=== PATIENT | female | born 2000 | race Caucasian/White ===

== ENCOUNTER 2018-03-02 07:50 | Emergency (ER) | payer OTHER ==
--- NOTE | 2018-03-02 07:56 | ER Document Report ---
HPI - HPI Pain Level: 3 Notes: Patient is a 17-year-old female with no significant past medical history who presents to the ED complaining of right dorsal foot pain status post injury while playing basketball yesterday. Patient states that she is still able to ambulate with a limp, but does have discomfort in doing so. The pain does not radiate. She has not noticed any other gross deformity. She denies any drug allergies. No IV drug use. Denies any headache, fever, URI, sore throat, chest pain, palpitations, syncope, cough, shortness of breath, wheeze, dyspnea, abdominal pain, nausea/vomiting/diarrhea, urinary retention, dysuria, hematuria , numbness/tingling, muscle paralysis/weakness, or rash. - ROS Systems Reviewed and Negative: Yes All other systems reviewed and negative Past Medical History - Social History Smoking Status: Never Smoker Family History: Reviewed & Not Pertinent Vertical Provider Document - CONSTITUTIONAL Agree With Documented VS: No - HR of 90 Notes: PHYSICAL EXAMINATION: GENERAL: Well-appearing, well-nourished and in no acute distress. LUNGS: Breath sounds clear to auscultation bilaterally and equal. No wheezes rales or rhonchi. HEART: Regular rate and rhythm without murmurs, rubs, gallops. Musculoskeletal: Rt foot/ankle: FROM to passive/active. Strength 5+/5. N/V intact distal. + tenderness to the dorsal medial foot. No bony tenderness of the ankle. Achilles intact. Extremities: No cyanosis, clubbing, or edema b/l. Peripheral pulses 2+. Capillary refill less than 3 seconds. NEUROLOGICAL: Normal speech, limping gait. Normal sensory, motor exams PSYCH: Normal mood, normal affect. SKIN: Warm, Dry, normal turgor, no rashes or lesions noted. - INFECTION CONTROL TRAVEL OUTSIDE OF THE [place] IN LAST 30 DAYS: No Course - Re-evaluation Re-evalutation: 03/02/18 08:52 Patient is an afebrile, well-hydrated, 17-year-old female who presents to the ED with Rt foot pain which I suspect to be a sprain versus strain. Vitals are acceptable without any significant tachycardia, tachypnea, or hypoxia. PE is otherwise unremarkable for any neurovascular compromise, obvious tendon/ ligament rupture, obvious fracture/dislocation, septic joint. X-ray was unremarkable for any acute pathology. Patient is nontoxic-appearing. Patient is able to ambulate and weight-bear although she is limping. No other labs or imaging warranted at this time based on H&P. Rx for naproxen. Conservative measures otherwise for symptoms. Recheck with your PCM in 3-5 days. Consider consult orthopedics. Return to the ED with any worsening/concerning symptoms otherwise as reviewed in discharge. Patient is in agreement. Discharge - Discharge Clinical Impression: Right foot pain Condition: Stable Disposition: HOME, SELF-CARE Additional Instructions: Rest, Ice, Compression, Elevation Tylenol/ibuprofen as needed Light stretches daily Strength exercises as able Moist heat and massage may help F/u with your PCP in 3-5 days for a recheck Consider consult(s) with Orthopedics/physical therapy for ongoing/worsening symptoms Return to the ED with any worsening symptoms and/or development of fever, headache, chest pain, palpitations, syncope, shortness of breath, trouble breathing, abdominal pain, n/v/d, muscle weakness/paralysis, numbness/tingling, swelling, redness, or other worsening symptoms that are concerning to you. Prescriptions: Naproxen 500 mg PO BID PRN #30 tablet PRN Reason: Forms: Elevated Blood Pressure Referrals: [facility] [Provider Group] - Follow up as needed
--- NOTE | 2018-03-02 08:34 | RADIOLOGY REPORT (SQ) ---
EXAM DESCRIPTION: FOOT RIGHT COMPLETE COMPLETED DATE/TIME: 03/02/2018 8:20 am REASON FOR STUDY: pain s/p injury COMPARISON: None. NUMBER OF VIEWS: Three views right foot. LIMITATIONS: None. FINDINGS: There is no acute or significant bone, joint or soft tissue abnormality. OTHER: No other significant finding. IMPRESSION: NORMAL STUDY. TECHNICAL DOCUMENTATION: JOB ID: [id number] Reading location - IP/workstation name: [email or web address]
[2018-03-02 09:00] VITALS: BP 122/80
== END 2018-03-02 09:10 | disposition home or self-care (01) ==
LOC: ER 07:50
DX: M79.671 Pain in right foot (principal)
CPT/HCPCS: 99283

== ENCOUNTER 2018-12-25 16:21 | Inpatient (IN) | payer OTHER ==
[2018-12-25 17:07] LABS: APPEARANCE,URINE CLEAR; BILIRUBIN,URINE NEGATIVE (NEGATIVE); COLOR,URINE STRAW; GLUCOSE, URINE NEGATIVE (NEGATIVE); KETONES,URINE NEGATIVE (NEGATIVE); LEUKOCYTE ESTERASE,URINE MODERATE (NEGATIVE); NITRITE,URINE NEGATIVE (NEGATIVE); PROTEIN,URINE NEGATIVE (NEGATIVE); URINE SPECIFIC GRAVITY 1.003; UROBILINOGEN,URINE NEGATIVE mg/dL (<2.0)
[2018-12-25] MEDS ORDERED: LIDOCAINE 1% INJ-PF (10 MG/ML) 30 ML SDV ONE (17:19)
[2018-12-25] MEDS ORDERED: OXYTOCIN/NORMAL SALINE 20 UNIT/1,000 ML RTUINJ ONE (17:19)
[2018-12-25] MEDS ORDERED: OXYTOCIN 10 UNIT/ML VIAL ONE (17:19)
[2018-12-25] MEDS ORDERED: DINOPROSTONE 10 MG VAGINAL INSERT.SR ONE (17:19)
[2018-12-25] MEDS ORDERED: MISOPROSTOL 0.2 MG TABLET ONE (17:19)
[2018-12-25 17:21] LABS: ABSOLUTE BASOPHILS # (AUTO) 0.1 10^3/uL (0.0-0.2); ABSOLUTE LYMPHOCYTES (AUTO) 1.5 10^3/uL (0.5-4.7); ABSOLUTE MONOCYTES (AUTO) 0.7 10^3/uL (0.1-1.4); ABSOLUTE NEUT (AUTO) 8.1 10^3/uL (1.7-8.2); BASOPHILS % (AUTO) 0.5 % (0-2); EOSINOPHILS % (AUTO) 0.4 % (0-6); HEMATOCRIT 33.5 % (36.0-47.0); HEMOGLOBIN 11.7 g/dL (12.0-15.5); LYMPHOCYTES % (AUTO) 14.1 % (13-45); MEAN CORPUSCULAR HEMOGLOBIN 30.7 pg (27.0-33.4); MEAN CORPUSCULAR VOLUME 88 fl (80-97); PLATELET COUNT 227 10^3/uL (150-450); RED BLOOD COUNT 3.82 10^6/uL (3.72-5.28); RED CELL DISTRIBUTION WIDTH 13.4 % (11.5-14.0); TOTAL CELLS COUNTED % (AUTO) 100 %; WHITE BLOOD COUNT 10.4 10^3/uL (4.0-10.5)
[2018-12-25 17:28] LABS: URINE AMPHETAMINES SCREEN NEGATIVE; URINE BARBITURATES SCREEN NEGATIVE; URINE BENZODIAZEPINES SCREEN NEGATIVE; URINE COCAINE SCREEN NEGATIVE; URINE MARIJUANA (THC) SCREEN NEGATIVE; URINE METHADONE SCREEN NEGATIVE; URINE PHENCYCLIDINE SCREEN NEGATIVE
[2018-12-25] MEDS ORDERED: OXYTOCIN/NORMAL SALINE 20 UNIT/1,000 ML RTUINJ IV PRN (18:11)
[2018-12-25] MEDS ORDERED: DINOPROSTONE 10 MG VAGINAL INSERT.SR PV PRN (18:11)
[2018-12-25] MEDS ORDERED: RINGERS SOLUTION,LACTATED 300 ML IV ONE (18:11)
[2018-12-25 19:33] LABS: ALANINE AMINOTRANSFERASE 13 U/L (9-52); ALBUMIN 3.8 g/dL (3.5-5.0); ALKALINE PHOSPHATASE 114 U/L (38-126); ANION GAP 9 (5-19); ASPARTATE AMINO TRANSFERASE 18 U/L (14-36); BILIRUBIN,DIRECT 0.3 mg/dL (0.0-0.4); BILIRUBIN,TOTAL 0.9 mg/dL (0.2-1.3); BLOOD UREA NITROGEN 11 mg/dL (7-20); CALCIUM 9.4 mg/dL (8.4-10.2); CARBON DIOXIDE 21 mmol/L (22-30); CHLORIDE 106 mmol/L (98-107); GLUCOSE 97 mg/dL (75-110); TOTAL PROTEIN 6.5 g/dL (6.3-8.2); URIC ACID 4.9 mg/dL (2.5-6.2)
[2018-12-25] MEDS: RINGERS SOLUTION,LACTATED 1,000 ML IV PRN (19:57)
[2018-12-26] MEDS: RINGERS SOLUTION,LACTATED 1,000 ML IV PRN (04:27)
[2018-12-26 10:10] LABS: ABSOLUTE LYMPHOCYTES (AUTO) 1.2 10^3/uL (0.5-4.7); ABSOLUTE MONOCYTES (AUTO) 0.9 10^3/uL (0.1-1.4); ABSOLUTE NEUT (AUTO) 10.6 10^3/uL (1.7-8.2); BASOPHILS % (AUTO) 0.2 % (0-2); EOSINOPHILS % (AUTO) 0.2 % (0-6); HEMATOCRIT 34.7 % (36.0-47.0); HEMOGLOBIN 11.9 g/dL (12.0-15.5); LYMPHOCYTES % (AUTO) 9.6 % (13-45); MEAN CORPUSCULAR HEMOGLOBIN 30.1 pg (27.0-33.4); MEAN CORPUSCULAR HGB CONC 34.4 g/dL (32.0-36.0); MEAN CORPUSCULAR VOLUME 88 fl (80-97); PLATELET COUNT 206 10^3/uL (150-450); RED BLOOD COUNT 3.96 10^6/uL (3.72-5.28); RED CELL DISTRIBUTION WIDTH 13.5 % (11.5-14.0); TOTAL CELLS COUNTED % (AUTO) 100 %; WHITE BLOOD COUNT 12.7 10^3/uL (4.0-10.5)
[2018-12-26 10:34] LABS: ALANINE AMINOTRANSFERASE 16 U/L (9-52); ALBUMIN 3.7 g/dL (3.5-5.0); ALKALINE PHOSPHATASE 107 U/L (38-126); ANION GAP 7 (5-19); ASPARTATE AMINO TRANSFERASE 17 U/L (14-36); BILIRUBIN,DIRECT 0.2 mg/dL (0.0-0.4); BILIRUBIN,TOTAL 1.1 mg/dL (0.2-1.3); BLOOD UREA NITROGEN 7 mg/dL (7-20); CALCIUM 9.2 mg/dL (8.4-10.2); TOTAL PROTEIN 6.3 g/dL (6.3-8.2)
[2018-12-26 10:40] LABS: CHLORIDE 109 mmol/L (98-107); GLUCOSE 67 mg/dL (75-110)
[2018-12-26 10:41] LABS: CARBON DIOXIDE 21 mmol/L (22-30)
--- NOTE | 2018-12-26 11:03 | Admission Physical ---
Datetime Report Generated by CPN: 12/26/2018 11:02 CURRENT ADMISSION Hx Assessment: The History has been Reviewed and is Current Indication for Induction: PreEclampsia Admit Impression : Term, Intrauterine ; No Active Labor; Intact Membranes; Induction of Labor Admit Plan: Admit to Unit; Initiate Labor Induction Protocol ALLERGIES Medication Allergies: No Medication Allergies: No Known Allergies (12/25/2018) Latex: No Latex Allergies OBSTETRICAL HISTORY EDC: 01/08/2019 00:00 : 2 Para: 0 Term: 0 : 0 SAB: 0 IAB: 0 Ectopic: 0 Livin Cesareans: 0 VBACs: 0 Multiple Births: 0 Gestational Diabetes: No Rh Sensitization: No Incompetent Cervix: No AZIZA: No Infertility: No ART Treatment: No Uterine Anomaly: No IUGR: No Hx Previous C/S: No Macrosomia: No Hx Loss/Stillborn: No PIH: No Hx : No Placenta Previa/Abruption: No Depression/PP Depression: No PTL/PROM: No Post Hemorrhage: No Current Procedures: Ultrasound Obstetrical History Comments: 2014 G2- Current SEE RECORDS Alcohol: No Marijuana : No Cocaine: No Other Illicit Drugs: No Cigarettes: Never Smoker. [id number] MEDICAL HISTORY Diabetes: No Blood Transfusion: No Pulmonary Disease (Asthma, TB): No Breast Disease: No Hypertension: No Can Patcher Surgery: No Heart Disease: No Hosp/Surgery: Yes Autoimmune Disorder: No Anesthetic Complications: No Kidney Disease: No Abnormal Pap Smear: No Neuro/Epilepsy: No Psychiatric Disorders: No Other Medical Diseases: No Hepatitis/Liver Disease: No Significant Family History: No Varicosities/Phlebitis: No Trauma/Violence : No Thyroid Dysfunction: No Medical History Comments: tonsils/adenoids INFECTIOUS HISTORY Gonorrhea: No Genital Herpes: No Chlamydia: No Tuberculosis: No Syphilis: No Hepatitis: No HIV/AIDS Exposure: No Rash or Viral Illness: No HPV: No PHYSICAL EXAM General: Normal HEENT: Deferred Neurologic: Normal Thyroid: Normal Heart: Normal Lungs: Normal Breast: Deferred Back: Normal Abdomen: Normal Genitourinary Exam: Normal Extremities: Normal DTRs: Normal Pelvic Type: Adequate Physical Exam Comments: G2 AB 1 24 hour ua 1062 FETUS A Monitoring: External US FHR Category: Category I Admit Comment: Admitted to LD for Cervidil and IOL for Pre-eclampsia, cervidil and Pitocin irreg uc's now, Cat 1 strip POC discussed with pt, GBS neg PLANS FOR LABOR AND DELIVERY Labor and Delivery: None Pain Management: Natural Feeding Preference: Breast Benefit of Breast Feed Discussed: Yes Circumcision: Yes INFORMED CONSENT Assignment: Jackie Helton, MD Signature: with User ID: [email or web address] : with User ID: [email or web address]
[2018-12-26] MEDS ORDERED: EPHEDRINE SULFATE INJ 50 MG/1 ML AMPULE ONE (11:47)
[2018-12-26] MEDS ORDERED: BUPIVACAINE HCL 0.25 % INJ/PF (2.5 MG/1 ML) 30 ML VIAL ONE (11:48)
[2018-12-26] MEDS ORDERED: FENTANYL/BUPIVACAINE/NS/PF 300 MCG/150 ML RTUINJ EPI ONE (11:48)
[2018-12-26] MEDS ORDERED: PHENYLEPHRINE HCL INJ/PF 10 MG/1 ML SDV ONE (11:53)
[2018-12-26] MEDS ORDERED: FENTANYL CITRATE INJ/PF 100 MCG/2 ML AMPUL ONE (11:53)
[2018-12-26] MEDS ORDERED: PROMETHAZINE HCL 25 MG TABLET PO PRN (15:11)
[2018-12-26] MEDS ORDERED: DIPH/PERTUSS(ACELL)/TETANUS VAC/PF 0.5 ML SYR (>=10YO) IM PRN (15:11)
[2018-12-26] MEDS ORDERED: OXYTOCIN/NORMAL SALINE 20 UNIT/1,000 ML RTUINJ IV PRN (15:11)
[2018-12-26] MEDS ORDERED: BENZOCAINE/MENTHOL AEROSOL SPRAY 56 ML TOP PRN (15:11)
[2018-12-26] MEDS ORDERED: MEASLES,MUMPS&RUBELLA VACC/PF 0.5 ML VIAL SUBCUT PRN (15:11)
[2018-12-26] MEDS ORDERED: NA PHOS,M-B/NA PHOS,DI-BA (ADULT) 133 ML ENEMA PR PRN (15:11)
[2018-12-26] MEDS ORDERED: PSEUDOEPHEDRINE HCL 30 MG TABLET PO PRN (15:11)
[2018-12-26] MEDS ORDERED: ACETAMINOPHEN 650 MG SUPP.RECT PR PRN (15:11)
[2018-12-26] MEDS ORDERED: PROMETHAZINE HCL INJ 25 MG/1 ML VIAL IV PRN (15:11)
[2018-12-26] MEDS ORDERED: DIBUCAINE 1% OINTMENT 56 GM TP PRN (15:11)
[2018-12-26] MEDS ORDERED: ACETAMINOPHEN WITH CODEINE #3 TABLET PO PRN ×2 (15:11)
[2018-12-26] MEDS ORDERED: MAGNESIUM HYDROXIDE SUSP 30 ML UDCUP PO PRN (15:11)
[2018-12-26] MEDS ORDERED: DIPHENHYDRAMINE HCL 25 MG CAPSULE PO PRN (15:11)
[2018-12-26] MEDS ORDERED: GLYCERIN/WITCH HAZEL LEAF 1 EACH MED..WIPE TP PRN (15:11)
[2018-12-26] MEDS ORDERED: PROMETHAZINE HCL 25 MG SUPP.RECT PR PRN (15:11)
[2018-12-26] MEDS ORDERED: ONDANSETRON HCL INJ/PF 4 MG/2 ML SDV ONE (15:24)
[2018-12-26] MEDS: DOCUSATE SODIUM 100 MG CAPSULE PO SCH (17:29)
[2018-12-26] MEDS: FERROUS SULFATE 325 MG TABLET PO SCH (17:29)
[2018-12-26] MEDS: FAMOTIDINE 20 MG TABLET PO SCH (22:06)
[2018-12-26] MEDS: IBUPROFEN 800 MG TABLET PO SCH (22:06)
[2018-12-27] MEDS: IBUPROFEN 800 MG TABLET PO SCH ×3 (05:29→21:35)
[2018-12-27 07:32] LABS: HEMATOCRIT 32.2 % (36.0-47.0); HEMOGLOBIN 11.2 g/dL (12.0-15.5); MEAN CORPUSCULAR HEMOGLOBIN 30.1 pg (27.0-33.4); MEAN CORPUSCULAR HGB CONC 34.7 g/dL (32.0-36.0); MEAN CORPUSCULAR VOLUME 87 fl (80-97); PLATELET COUNT 208 10^3/uL (150-450); RED BLOOD COUNT 3.71 10^6/uL (3.72-5.28); RED CELL DISTRIBUTION WIDTH 13.6 % (11.5-14.0); WHITE BLOOD COUNT 14.6 10^3/uL (4.0-10.5)
--- NOTE | 2018-12-27 09:53 | PDOC PROGRESS REPORT ---
Subjective-OB Progress Note for:: 12/27/18 Subjective: Doing well, no c/o, holding baby, voiding, Physical Exam (OB) Vital Signs: Temp Pulse Resp BP Pulse Ox 98.8 F 68 16 139/80 H 99 12/26/18 17:21 12/26/18 17:21 12/26/18 17:21 12/26/18 17:21 12/26/18 17:21 Intake & Output 12/26/18 12/27/18 12/28/18 06:59 06:59 06:59 Intake Total 1000 300 Output Total 1 Balance 1000 299 Weight 79.5 kg - PIH/Pre-Eclampsia DTR's: 2 + Clonus: Negative Headache: Absent Epigastric Pain: No Visual Changes: No - Lochia Lochia Amount: Scant < 10 ml Lochia Color: Rubra/Red - Abdomen Description: Tender, Soft Hernia Present: No Fundal Description: Firm, Midline Fundal Height: u/u - u/2 Objective-Diagnostic Laboratory: 12/27/18 07:00 12/26/18 09:40 12/26/18 12/26/18 12/27/18 09:40 09:40 07:00 WBC 12.7 H 14.6 H RBC 3.96 3.71 L Hgb 11.9 L 11.2 L Hct 34.7 L 32.2 L MCV 88 87 MCH 30.1 30.1 MCHC 34.4 34.7 RDW 13.5 13.6 Plt Count 206 208 Seg Neutrophils % 83.0 H Lymphocytes % 9.6 L Monocytes % 7.0 Eosinophils % 0.2 Basophils % 0.2 Absolute Neutrophils 10.6 H Absolute Lymphocytes 1.2 Absolute Monocytes 0.9 Absolute Eosinophils 0.0 Absolute Basophils 0.0 Sodium 137.1 Potassium 4.0 Chloride 109 H Carbon Dioxide 21 L Anion Gap 7 BUN 7 Creatinine 0.56 Est GFR ( Amer) > 60 Est GFR (Non-Af Amer) > 60 Glucose 67 L Calcium 9.2 Total Bilirubin 1.1 AST 17 ALT 16 Alkaline Phosphatase 107 Total Protein 6.3 Albumin 3.7 Assessment and Plan(PN) - Assessment and Plan (1) Vacuum extraction, delivered, current hospitalization Is this a current diagnosis for this admission?: Yes (2) Pre-eclampsia Qualifiers: Trimester: third trimester Qualified Code(s): O14.93 - Unspecified pre- eclampsia, third trimester Is this a current diagnosis for this admission?: Yes (3) Encounter for induction of labor Is this a current diagnosis for this admission?: Yes - Time Spent with Patient Time with patient: Less than 15 minutes Medications reviewed and adjusted accordingly: Yes - Disposition Anticipated Discharge: Home Within: within 24 hours
[2018-12-27] MEDS: FERROUS SULFATE 325 MG TABLET PO SCH ×2 (10:35→18:34)
[2018-12-27] MEDS: SENNOSIDES/DOCUSATE 8.6-50 MG 1 EACH TABLET PO SCH (10:35)
[2018-12-27] MEDS: DOCUSATE SODIUM 100 MG CAPSULE PO SCH ×2 (10:35→18:34)
[2018-12-27] MEDS: FAMOTIDINE 20 MG TABLET PO SCH ×2 (10:35→21:35)
[2018-12-27] MEDS: PRENATAL VITAMIN W DHA CAPSULE PO SCH (10:35)
[2018-12-28] MEDS: IBUPROFEN 800 MG TABLET PO SCH (06:12)
--- NOTE | 2018-12-28 09:01 | PDOC PROGRESS REPORT ---
Subjective-OB Progress Note for:: 12/28/18 Subjective: Doing well, no c/o, ready to go home, hsb at BS, scant bleeding, eating well Physical Exam (OB) Vital Signs: Temp Pulse Resp BP Pulse Ox 97.8 F 57 L 18 132/79 H 98 12/28/18 04:17 12/28/18 04:17 12/28/18 04:17 12/28/18 04:17 12/28/18 04:17 Intake & Output 12/27/18 12/28/18 12/29/18 06:59 06:59 06:59 Intake Total 300 300 Output Total 1 Balance 299 300 - PIH/Pre-Eclampsia DTR's: 1 + Clonus: Negative Headache: Absent Epigastric Pain: No Visual Changes: No - Lochia Lochia Amount: Scant < 10 ml Lochia Color: Rubra/Red - Abdomen Description: Tender, Soft, Round Hernia Present: No Fundal Description: Firm, Midline Fundal Height: u/u - u/2 Objective-Diagnostic Laboratory: 12/27/18 07:00 12/26/18 09:40 Assessment and Plan(PN) - Assessment and Plan (1) Vacuum extraction, delivered, current hospitalization Is this a current diagnosis for this admission?: Yes (2) Pre-eclampsia Qualifiers: Trimester: third trimester Qualified Code(s): O14.93 - Unspecified pre- eclampsia, third trimester Is this a current diagnosis for this admission?: Yes (3) Encounter for induction of labor Is this a current diagnosis for this admission?: Yes - Time Spent with Patient Time with patient: Less than 15 minutes Medications reviewed and adjusted accordingly: Yes - Disposition Anticipated Discharge: Home Within: within 24 hours
--- NOTE | 2018-12-28 09:04 | PDOC DISCHARGE SUMMARY ---
Final Diagnosis Discharge Date: 12/28/18 - Final Diagnosis (1) Vacuum extraction, delivered, current hospitalization Is this a current diagnosis for this admission?: Yes (2) Pre-eclampsia Is this a current diagnosis for this admission?: Yes (3) Encounter for induction of labor Is this a current diagnosis for this admission?: Yes Discharge Data - Discharge Medication Home Medications: 95/Iron Fum/Folic/Dha [ + Dha Combo Pack] 1 cap PO DAILY 12/22/18 Ascorbic Acid [Vitamin C] 1,000 mg PO DAILY 12/25/18 Iron,Carbonyl [Perfect Iron] 1 tab PO DAILY 12/25/18 Gestational Age: 38.1 Reason(s) for Admission: Induction of Labor Admission Note: Pre-eclampsia Procedures: NST, Ultrasound Intrapartum Procedure(s): Spontaneous Vaginal Delivery Complication(s): Laceration-Vaginal Laceration-Degree: 2nd - Diagnosis Test Laboratory: Temp Pulse Resp BP Pulse Ox 97.8 F 57 L 18 132/79 H 98 12/28/18 04:17 12/28/18 04:17 12/28/18 04:17 12/28/18 04:17 12/28/18 04:17 12/25/18 12/25/18 12/26/18 16:41 17:01 09:40 RBC 3.82 3.96 Hgb 11.7 L 11.9 L Hct 33.5 L 34.7 L Urine Opiates Screen NEGATIVE 12/27/18 07:00 RBC 3.71 L Hgb 11.2 L Hct 32.2 L Urine Opiates Screen - Discharge information/Instructions Discharge Activity: Activity As Tolerated, No Lifting Over 10 Pounds, No Lifting/Push/Pulling, Pelvic Rest Discharge Diet: As Tolerated, Regular Disposition: HOME, SELF-CARE Follow up with: [facility] in: 2, Weeks
[2018-12-28] MEDS: PRENATAL VITAMIN W DHA CAPSULE PO SCH (10:20)
[2018-12-28] MEDS: SENNOSIDES/DOCUSATE 8.6-50 MG 1 EACH TABLET PO SCH (10:21)
[2018-12-28] MEDS: FAMOTIDINE 20 MG TABLET PO SCH (10:21)
[2018-12-28] MEDS: DOCUSATE SODIUM 100 MG CAPSULE PO SCH (10:21)
[2018-12-28] MEDS: FERROUS SULFATE 325 MG TABLET PO SCH (10:21)
[2018-12-28 12:13] VITALS: BP 133/78
--- NOTE | 2018-12-30 12:02 | Delivery Summary ---
Del Sum A-C Datetime Report Generated by CPN: 12/30/2018 12:02 DELIVERY PERSONNEL DELIVERY PERSONNEL: [id number] Delivery Doctor:: Jackie Helton MD Labor and Delivery Nurse:: Kayla So RNchief sustainability officer Nurse:: Dyana Olvera RN Formulation Technician:: Dorothy Argueta RNC Nursery Nurse:: Brynn Deluna RN Flooring Mechanic/COMPUTING SERVICES DIRECTOR: Rekha Cali, ST Additional Personnel: : Coco Campos RN and Federica Barrera, AMEE MATERNAL INFORMATION Delivery Anesthesia: Epidural Medications During Delivery: cytotec 1000 mcg per rectum Medications After Delivery: Pitocin Bolus-Please Comment; Cytotec 1000mcg Per Rectum/Vagina Meds After Delivery Comment: pitocin 20 units in 1000 ml nss open for bolus Estimated Blood Loss (ml): 300 Delivery QBL: 300 Maternal Complications: None Provider Comments: VAVD of a viable male @ 1504 with an OA w/tight nuchal cord x 1 presentation; APGARS 8, 9. 2nd degree midline lac LABOR SUMMARY EDC: 01/08/2019 00:00 No. Babies in Womb: 1 Attempted: No Labor Anesthesia: Epidural LABOR INFORMATION Reason for Induction: Pre-Eclampsia Onset of Labor: 12/26/2018 11:04 Complete Dilatation: 12/26/2018 14:33 Cervical Ripening Agents: Cervidil Oxytocin: Induction Group B Beta Strep: negative Antibiotics # of Doses: 0 Steroids Given: None Reason Steroids Not Administered: Not Applicable MEMBRANES Membranes Rupture Method: Artificial Rupture of Membranes: 12/26/2018 11:04 Length of Rupture (hr): 4.00 Amniotic Fluid Color: Clear Amniotic Fluid Amount: Moderate Amniotic Fluid Odor: Normal STAGES OF LABOR Stage 1 hr: 3 Stage 1 min: 29 Stage 2 hr: 0 Stage 2 min: 31 Stage 3 hr: 0 Stage 3 min: 3 Total Time in Labor hr: 4 Total Time in Labor min: 3 VAGINAL DELIVERY Episiotomy: None Laceration #1: Vaginal Laceration Extension #1: Second Degree Laceration Repair: Yes Laceration Repair Note: 2nd degree midline vaginal lac repaired w/2-0 vicryl Sponge Count Correct: N/A Sharps Count Correct: N/A CSECTION DELIVERY Primary Indication: N/A Secondary Indication: N/A CSection Incidence: N/A Labor: N/A Elective: N/A CSection Incision: N/A BABY A INFORMATION Delivery Date/Time: 12/26/2018 15:04 Method of Delivery: Vaginal Method of Delivery: Vaginal Born in Route : No : N/A Forceps: N/A Vacuum Extraction: Successful Shoulder Dystocia : No ASSISTED DELIVERY BABY A Indication for Assisted Delivery: NRFHTs Catheter Prior to Procedure: hirsch removed approx 1 hr prior Station Vacuum/Forcep Apply: +2 Position Vacuum/Forcep Apply: Right Occipital Anterior Vacuum Number of Pulls: 6 sets Vacuum Number of PopOffs: 0 Vacuum Maximum Pressure Obtained: 500 mmHg Reduce Pressure btwn Ctx: Yes Vacuum Engagement Quality Consultant: kavita Total Time Vacuum Applied: 14 minutes Vacuum/Forceps Comment: Pitocin was turned off, therefore her contractions were widely spaced. Approx 3-4 minutes apart. PRESENTATION/POSITION BABY A Presentation: Cephalic Cephalic Presentation: Vertex Vertex Position: Right Occipital Anterior Breech Presentation: N/A PLACENTA INFORMATION BABY A Placenta Delivery Time : 12/26/2018 15:07 Placenta Method of Delivery: Spontaneous Placenta Method of Delivery: Spontaneous Placenta Status: Delivered SCORES BABY A Heart Rate 1 min: >100 bpm Resp Effort 1 min: Good Cry Reflex Irritability 1 min: Cough or Sneeze or Pulls Away Muscle Tone 1 min: Some Flexion of Extremities Color 1 min: Body [employer], Extremities Blue Resuscitation Effort 1 min: Tactile Stimulation SCORE 1 MIN: 8 Heart Rate 5 min: >100 bpm Resp Effort 5 min: Good Cry Reflex Irritability 5 min: Cough or Sneeze or Pulls Away Muscle Tone 5 min: Active Motion Color 5 min: Body [employer], Extremities Blue Resuscitation Effort 5 min: N/A SCORE 5 MIN: 9 Resuscitation Effort 10 min: N/A INFANT INFORMATION BABY A Gestational Age at Delivery: 38.1 Gestational Status: Early Term- 37- 38.6 Weeks Infant Outcome : Liveborn Condition : Stable Sex: Male Sex: Male IDENTIFICATION BABY A Verification Date/Time: 12/26/2018 15:28 ID Band Number: [id number] Mother's Name Verified: Yes RN Verifying : Shankar So RN and MEris Barrera, RN WEIGHT/LENGTH BABY A Birthweight (gm): 3454 Infant Weight (lb): 7 Infant Weight (oz): 10 Infant Length (in): 20.00 Length (cm): 50.80 CORD INFORMATION BABY A No. Cord Vessels: 3 Nuchal Cord : Around Neck x1, Tight Cord Blood Taken: Yes-For Storage (Mom's Blood type +) Infant Suction: None ASSESSMENT BABY A Complications: Multiple Variable Decels Physical Findings at Delivery: Caput Succedaneum; Molding of the Head; Puncture Wound from Scalp Electrode; Bruising Respirations: Appears Normal Skin to Skin: Yes Skin to Skin: Yes Moving Picture Operator/ALS Called : No Infant Care By: Radha Deluna RN Transferred To: Remains with Mother BABY B INFORMATION : N/A SIGNATURES Signature: with User ID: [email or web address]
== END 2018-12-28 13:40 | disposition home or self-care (01) | DRG 807 ==
LOC: LR 16:21 → 2S 12-26 17:19
PROVIDERS: ADMIT Obstetrics & Gynecology Gynecology; ATTEND Obstetrics & Gynecology Gynecology
PROC: 10D07Z6 Extraction of Products of Conception, Vacuum, Via Natural or Artificial Opening (ICD-10-PCS; principal; 2018-12-26)
PROC: 0KQM0ZZ Repair Perineum Muscle, Open Approach (ICD-10-PCS; 2018-12-26)
PROC: 10907ZC Drainage of Amniotic Fluid, Therapeutic from Products of Conception, Via Natural or Artificial Opening (ICD-10-PCS; 2018-12-26)
DX: O76 Abnormality in fetal heart rate and rhythm complicating labor and delivery (principal); Z37.0 Single live birth; O14.94 Unspecified pre-eclampsia, complicating childbirth; O69.1XX0 Labor and delivery complicated by cord around neck, with compression, not applicable or unspecified; O70.1 Second degree perineal laceration during delivery; Z3A.38 38 weeks gestation of pregnancy
CPT/HCPCS: 36415; 80053; 80307; 81005; 82962; 83615; 84550; 85025; 85027; 86592; 86850; 86900; 86901; 88307; J2370; J2405; J2590; J3010; J3490